=== PATIENT | male | born 1960 | race Caucasian/White ===

== ENCOUNTER → 2022-04-21 14:05 | Outpatient (CLI) | payer OTHER, SELFPAY ==
[2022-04-21 14:46] LABS: COVID19 -Nasal RAPID Negative (Negative)
== END ==
PROVIDERS: PCP Student in an Organized Health Care Education/Training Program; Referring Provider Podiatrist; Visit Provider Podiatrist
DX: Z20.822 Contact with and (suspected) exposure to COVID-19 (principal)
CPT/HCPCS: 87635; C9803

== ENCOUNTER 2022-04-22 05:44 | Day surgery (SDC) | payer OTHER, SELFPAY ==
[2022-04-19 08:09] VITALS: BMI 28.0
--- NOTE | 2022-04-22 | PATH_ITS ---
[facility] Accession Number: [id number] No. of containers..01 Tissue . 01 Material submitted: . foot - LEFT FOOT SECOND INTERSPACE NEUROMA . 01 Diagnosis: Left Foot, Second Interspace, Excision: Consistent with neuroma. [facility] 04/28/2022 0843 Local . 01 Electronically signed: . Eduardo Ibarra MD, Dermatopathologist NPI- [id number] . 01 Gross description: . LEFT FOOT SECOND INTERSPACE NEUROMA: Received in formalin is 1 fragment of cantrell soft tissue measuring 2.3 x 0.1 x 0.1 cm. Tissue is inked. Specimen is sectioned and submitted in its entirety in 1 cassette. /CPE 04/23/2022 1016 Local . 01 Pathologist provided ICD-10: G57.62 . 01 CPT . 049801 Specimen Comment: A courtesy copy of this report has been sent to [phone] Performed at: 01 [facility] [address] [place] [address] [address] [facility] [place], [place], [place] [id number] MD Stoney Gan MD Phone: [phone]
[2022-04-22 07:03] VITALS: BP 155/82; PULSE 98; RESP 16; TEMP 36.2; O2SAT 100; BMI 28.0
[2022-04-22] MEDS: LACTATED RINGERS 1,000 ML 84 ML IV ×2 (07:32→09:22)
--- NOTE | 2022-04-22 07:36 | PM.PREOP ---
Pre-operative Note COVID-19 COVID-19 status: Negative Result date/Date tested (Pos, Neg/Pending): 04/21/22 Interval Note History & Physical reviewed/Exam performed by Physician: Yes Changes to H&P: No
--- NOTE | 2022-04-22 07:37 | PM.OP.1 ---
Operative Date/Time/Diagnoses Date of procedure: 04/22/22 Time of procedure: 07:37 Pre-op diagnosis: Left painful second hammertoe, great toe abduction, and second interspace neuroma Post-op diagnosis: same Procedure & Clinicians Procedure: Left second metatarsal osteotomy (66404) Left second proximal interphalangeal joint arthrodesis (06916) Left bunionectomy with hallux phalangeal osteotomy (67568) Left second interspace neuroma excision (60080) Same procedure as scheduled: Yes Indications: 62-year-old male with painful left foot 2nd hammertoe and neuroma with hallux valgus. Conservative measures have failed to alleviate his pain and he wished to have surgical intervention at this time. We spoke with the risks, potential complications, alternatives, and expected outcomes. Consent was signed and there were no contraindications to the procedure at this time. Surgeon: Loraine Cunningham Click Yes if Unassisted: Yes Anesthesia Type: General Operative Notes Closure Type: primary Specimen(s): other (Left second interspace neuroma sent to Pathology) Prosthetic devices, grafts, tissues, transplants, or devices: [place] 2.0 cannulated screw, JAWS staple x2, 0.054 k-wire, Estimated Blood Loss (mL): 30 Blood products transfused: none Tourniquet time (min): 114 Procedure in detail: The patient was brought to the operating room and placed on the operating table in the supine position. The tourniquet was placed about the left thigh, well padded, appropriately aligned. After induction of general anesthesia the left foot and ankle were prepped and draped in the usual aseptic manner. Local anesthesia using the recorded injectables was obtained to the 1st and 2nd rays. After escmarch exsanguination, the tourniquet was inflated. After verification of local anesthesia, attention was directed to the second toe where an incision was made over the dorsal distal and proximal interphalangeal joints across the 2nd metatarsal head into the 2nd interspace. The incision was deepened through subcutaneous tissues being careful to identify and retract all vital neural and vascular structures. All bleeders were cauterized and ligated as necessary. A transection of the extensor tendon at the proximal interphalangeal joint was performed. A saw was used to resect the base of the intermediate phalanx and the head of the proximal phalanx. The capsule of the second metatarsophalangeal joint was tight and released. The extensor tendon was also tight still, so a Z-lengthening was performed at the level of the metatarsophalangeal joint. The metatarsal head and neck were exposed. There was a segment of missing cartilage on the medial central to plantar aspect of the 2nd metatarsal head consistent with the contracture preoperatively. A saw was used to create an osteotomy across the edge of the dorsal tip of second metatarsal head. This was also planed to allow for some reduction of bone to allow for slight elevation of the head. The metatarsal head and pushed back proximally to a point where there was more of an equal parabola of length. Following this osteotomy I was now able to visualize better the distal second interspace. Further dissection into the second interspace, the deep transverse intermetatarsal ligament was cleanly resected and this allowed visualization of the underlying interspace. I was able to note the white shiny, enlarged tissue of the nerve. The nerve was cleanly resected at its most proximal aspect allowing it to retract into the musculature and the 2 distal locations as it fed into the digits. The area was irrigated with copious amounts of normal sterile saline. The specimen was passed from the table and sent to pathology for identification. The 2nd metatarsal head osteotomy was placed in its recessed position and temporarily fixated with a guidewire. And then using standard AO technique, a 2.0 cannulated screw was placed across the osteotomy. Guidewire was removed. This was checked under mini C-arm and strength was good as well as compression. The screw was not impinging upon tissues plantarly. In the proximal interphalangeal space, a gently harvested the central small segment of the flexor digitorum longus and keeping it in place with the attachment proximally, I out the medial and lateral segment so that this can be transferred later. Under the aid of mini C-arm, a 0.054 k-wire was placed in the base of the intermediate phalanx and out the distal tip of the toe. This was retrograded back across the proximal phalanx. This closed down the proximal interphalangeal joint with good apposition, and k-wire was checked for placement under mini C-arm in all three planes. Excess distal wire was removed after careful bending as it exited the toe, and pin cap was placed. The flexor tendon was sutured medially and laterally as dorsal as possible to the segment of the proximal phalanx distally with 4-0 ethibond. Extensor tendon was repaired using 4-0 ethibond and 4-0 Vicryl in both locations. Loading the foot there was good alignment of the second toe and joints. Incision was made over the left 1st metatarsal phalangeal joint into the proximal phalanx. The incision was deepened through subcutaneous tissues being careful to identify and retract all vital neurovascular structures. All bleeders were cauterized and ligated as necessary. A medial capsulotomy was performed to the 1st MTPJ exposing the enlarged medial eminence. Of note, there was an investment of white munoz it within about a 3rd of the surface of metatarsal head consistent with history of gout. The saw was used to resect the medial eminence. Dissection was carried down and reflecting the extensor away from the proximal phalanx centrally, a saw was used to remove a triangular portion of bone with the apex medially. This was gently closed down to allow for straightening and justification of the great toe. The area was irrigated with copious amounts normal sterile saline. Using standard technique a set of 2 bone shannon were used for osteotomy fixation. One was placed dorsal laterally and the other dorsal medially and under good tension. This closed down the osteotomy with good strength apposition. Upon loading the foot, alignment was improved of the great toe. The area was irrigated with normal saline. The great toe was placed in linear alignment and the medial 1st MTP capsule was repaired with Vicryl. The tourniquet was deflated and a prompt hyperemic response was seen in the foot. Deep and subcutaneous closure was closed performed with Vicryl, and Nylon suture to the skin. The foot was dressed with a lightly compressive sterile dressing and splint in alignment. The tip of toe where the wire was exiting was dressed with triple antibiotic ointment. Patient was then placed in a postoperative boot and transferred to PACU with vital signs stable. Complications: none Post-operative Condition: stable Disposition: PACU Plan for aftercare: Following a period of postoperative monitoring, the patient will be discharged to home on written and oral postoperative instructions including keeping the dressing dry and intact, no weight to the surgical foot, icing and elevating the foot when seated home. DVT prevention techniques have been reviewed. For the 1st postoperative visit the dressing will be changed and close to the 4th postoperative week we will likely remove the K-wire upon getting x-rays.
[2022-04-22] MEDS: CEFAZOLIN 2 GM/100 ML PREMIX 100 ML IV (08:00)
[2022-04-22] MEDS: BUPIVACAINE 0.25% (PF) VIAL 30 ML INJ (08:17)
--- NOTE | 2022-04-22 08:25 | SUR.OPER ---
Supine on padded OR bed, head on pillow, arms secured on padded arm boards at <90 degrees abduction, legs uncrossed, safety belt at waist, tape over blanket over lower leg right.
[2022-04-22] MEDS: NEOMYCIN/POLYMYXIN/BACITRA UD OINT 1 EACH TOP (10:35)
[2022-04-22 10:43] VITALS: BP 142/85; PULSE 80; RESP 16; TEMP 36.3; O2SAT 96
[2022-04-22 10:49] VITALS: BP 143/84; PULSE 81; RESP 13; O2SAT 98
[2022-04-22 10:54] VITALS: BP 140/70; PULSE 76; RESP 17; TEMP 36.8; O2SAT 98
[2022-04-22] MEDS: HYDROCODONE/ACET 5/325 TABLET 1 TAB PO (10:55)
[2022-04-22 10:59] VITALS: BP 124/71; PULSE 75; RESP 16; TEMP 36.3; O2SAT 95
[2022-04-22 11:26] VITALS: BP 147/86; PULSE 72; RESP 16; TEMP 36.3; O2SAT 96
== END 2022-04-22 11:32 | disposition home or self-care (01) ==
LOC: OR 05:45
PROVIDERS: PCP Student in an Organized Health Care Education/Training Program; Referring Provider Podiatrist; Visit Provider Podiatrist
PROC: (CPT 28080; principal; 2022-04-22 07:45)
DX: G57.62 Lesion of plantar nerve, left lower limb (principal); M25.872 Other specified joint disorders, left ankle and foot; M20.12 Hallux valgus (acquired), left foot; M20.42 Other hammer toe(s) (acquired), left foot
CPT/HCPCS: 28080; 28298; 28285; 28308; J0690; J1170; J2405